=== PATIENT | female | born 1985 | race Caucasian/White ===

== ENCOUNTER 2018-10-18 09:13 | Emergency (ER) | payer SELFPAY ==
[~2018-10-18] VITALS: Ht 162.6 cm; Wt 64.0 kg
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
[2018-10-18] MEDS ORDERED: OLANZAPINE 10 MG VIAL IM ONE ×2 (09:30→10:00)
--- NOTE | 2018-10-18 09:30 | NUR ---
SITTER AT BEDSIDE
[2018-10-18 09:54] LABS: BASOPHILS # (AUTO) 0.1 /CMM (0.0-0.2); BASOPHILS % (AUTO) 0.7 % (0.0-2.0); EOSINOPHILS % (AUTO) 2.6 % (0.0-6.0); HEMATOCRIT 39 % (33-45); LYMPHOCYTES # (AUTO) 2.3 /CMM (0.8-4.8); LYMPHOCYTES % (AUTO) 30.7 % (20.0-44.0); MEAN CORPUSCULAR HGB CONC 34 g/dl (31.0-36.0); MEAN CORPUSCULAR VOLUME 95 fL (82-100); MONOCYTES # (AUTO) 0.8 /CMM (0.1-1.30); MONOCYTES % (AUTO) 10.6 % (2.0-12.0); NEUTROPHILS # (AUTO) 4.2 /CMM (1.8-8.9); NEUTROPHILS % (AUTO) 55.4 % (43.0-81.0); PLATELET COUNT (AUTO) 377 /CMM (150-450); RED BLOOD CELL COUNT(AUTO) 4.07 MIL/uL (4.0-5.2); WHITE BLOOD COUNT (AUTO) 7.5 K/uL (4.3-11.0)
[2018-10-18] MEDS ORDERED: IV NS 0.9% 1,000 ML BAG IV ONE (10:00)
[2018-10-18 10:05] LABS: CALCIUM, SERUM 9.4 mg/dL (8.5-10.1); CARBON DIOXIDE 19 mmol/L (21-32); CHLORIDE 103 mmol/L (98-107); GLUCOSE 81 mg/dL (74-106); POTASSIUM 4.2 mmol/L (3.5-5.1); SODIUM SERUM 139 mmol/L (136-145); UREA NITROGEN, BLOOD 9 mg/dL (7-18)
[2018-10-18 10:10] LABS: APPEARANCE,URINE Cloudy (CLEAR); BILIRUBIN,URINE SMALL (NEGATIVE); BLOOD, URINE Negative Ery/uL (NEGATIVE); COLOR,URINE Yellow (YELLOW); KETONES,URINE Trace (NEGATIVE); LEUKOCYTE ESTERASE ,URINE Negative (NEGATIVE); NITRITE, URINE Negative (NEGATIVE); PROTEIN,URINE 30 mg/dl (NEGATIVE); UGLUCOSE Negative (NEGATIVE); UROBILINOGEN,URINE 0.2 EU/dL (0.2)
[2018-10-18 10:11] LABS: ALANINE AMINOTRANSFERASE 19 U/L (12-78); ALBUMIN 4.1 g/dL (3.4-5.0); ALKALINE PHOSPHATASE 51 U/L (46-116); ASPARTATE AMINOTRANSFERASE 19 U/L (15-37); BILIRUBIN,DIRECT 0.2 mg/dL (0.0-0.2); BILIRUBIN,TOTAL 1.2 mg/dL (0.2-1.0); TOTAL PROTEIN, SERUM 7.4 g/dL (6.4-8.2)
[2018-10-18 10:12] LABS: ACETAMINOPHEN 0 ug/ml (10-30); ALCOHOL, BLOOD < 3 mg/dL (0-0); SALICYLATE 1.9 mg/dL (2.8-20.0)
[2018-10-18 10:17] LABS: BACTERIA,URINE Few /HPF (None Seen); RBC,URINE 0-3 /HPF (0-2); SQUAMOUS EPITHELIAL CELL,UR Moderate /HPF (None Seen)
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
[2018-10-18] MEDS ORDERED: OLANZAPINE 5 MG TABLET PO ONE (17:00)
[2018-10-18] MEDS ORDERED: OLANZAPINE 5 MG TABLET ONE (17:13)
--- NOTE | 2018-10-18 17:30 | NUR ---
PROVIDED PT WITH MEAL TRAY
--- NOTE | 2018-10-18 20:15 | NUR ---
PT PROVIDED WITH MEAL TRAY, PT THEN THREW FOOD TRAY AT STAFF.
--- NOTE | 2018-10-18 20:20 | NUR ---
IV removed. Catheter intact and site benign. Pressure and 4x4 applied to site. No bleeding noted.
--- NOTE | 2018-10-18 20:30 | NUR ---
PT AGAIN PROVIDED WITH FOOD AND DRINK AND NEW CLOTHES. PT REFUSED TO SIGN DISCHARGE PAPERWORK OR HOMELESS WAIVER. PT LEFT ER. DR HOLDER NOTIFIED.
[2018-10-18 20:43] VITALS: BP 135/74
== END 2018-10-18 20:43 | disposition home or self-care (01) ==
LOC: ER 09:17 → EDBD 09:17 → ER 20:43
DX: G93.40 Encephalopathy, unspecified (principal); F15.10 Other stimulant abuse, uncomplicated
CPT/HCPCS: 36415; 80048; 80076; 80305; 80307; 80329; 81001; 84702; 85025; 93005; 96372; 99291; G0480; J3490; J7030; 81000-TC

== ENCOUNTER 2018-10-19 00:51 | Emergency (ER) | payer SELFPAY ==
[~2018-10-19] VITALS: Ht 165.1 cm; Wt 61.2 kg
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
[2018-10-19] MEDS ORDERED: LORAZEPAM INJ 2 MG/ML VIAL IVP ONE (01:30)
[2018-10-19] MEDS ORDERED: LORAZEPAM INJ 2 MG/ML VIAL ONE (01:38)
[2018-10-19 01:49] LABS: BASOPHILS # (AUTO) 0.1 /CMM (0.0-0.2); BASOPHILS % (AUTO) 0.8 % (0.0-2.0); EOSINOPHILS % (AUTO) 3.4 % (0.0-6.0); HEMATOCRIT 39 % (33-45); HEMOGLOBIN 13.3 g/dL (11.5-14.8); LYMPHOCYTES # (AUTO) 2.1 /CMM (0.8-4.8); LYMPHOCYTES % (AUTO) 25.3 % (20.0-44.0); MEAN CORPUSCULAR HGB CONC 34 g/dl (31.0-36.0); MEAN CORPUSCULAR VOLUME 93 fL (82-100); MONOCYTES # (AUTO) 0.7 /CMM (0.1-1.30); MONOCYTES % (AUTO) 8.1 % (2.0-12.0); NEUTROPHILS # (AUTO) 5.1 /CMM (1.8-8.9); NEUTROPHILS % (AUTO) 62.4 % (43.0-81.0); PLATELET COUNT (AUTO) 361 /CMM (150-450); RED BLOOD CELL COUNT(AUTO) 4.18 MIL/uL (4.0-5.2); WHITE BLOOD COUNT (AUTO) 8.2 K/uL (4.3-11.0)
[2018-10-19 01:54] LABS: CARBON DIOXIDE 27 mmol/L (21-32); CHLORIDE 106 mmol/L (98-107); GLUCOSE 101 mg/dL (74-106); POTASSIUM 3.5 mmol/L (3.5-5.1); SODIUM SERUM 144 mmol/L (136-145); UREA NITROGEN, BLOOD 14 mg/dL (7-18)
[2018-10-19 02:11] LABS: ALANINE AMINOTRANSFERASE 30 U/L (12-78); ALBUMIN 3.7 g/dL (3.4-5.0); ALKALINE PHOSPHATASE 64 U/L (46-116); ASPARTATE AMINOTRANSFERASE 64 U/L (15-37); BILIRUBIN,DIRECT 0.2 mg/dL (0.0-0.2); BILIRUBIN,TOTAL 0.6 mg/dL (0.2-1.0); TOTAL PROTEIN, SERUM 6.8 g/dL (6.4-8.2)
[2018-10-19 02:12] LABS: ALCOHOL, BLOOD < 3 mg/dL (0-0)
[2018-10-19 03:01] LABS: BILIRUBIN,URINE Negative (NEGATIVE); BLOOD, URINE Negative Ery/uL (NEGATIVE); COLOR,URINE Yellow (YELLOW); KETONES,URINE 15 (NEGATIVE); LEUKOCYTE ESTERASE ,URINE Small (NEGATIVE); NITRITE, URINE Positive (NEGATIVE); PH,URINE 8.5 (5.0-8.0); PROTEIN,URINE 30 mg/dl (NEGATIVE); UGLUCOSE Negative (NEGATIVE); UROBILINOGEN,URINE 0.2 EU/dL (0.2)
[2018-10-19 03:05] LABS: APPEARANCE,URINE TURBID (CLEAR)
--- NOTE | 2018-10-19 03:05 | NUR ---
PT SLEEPING IN [facility]. NO SIGNS OF DISTRESS NOTED. PT VITAL SIGNS WITHIN NORMAL LIMITS. WILL CONT TO MONITOR PT.
[2018-10-19 03:19] LABS: BACTERIA,URINE Many /HPF (None Seen); RBC,URINE 0-2 /HPF (0-2); SQUAMOUS EPITHELIAL CELL,UR Few /HPF (None Seen)
--- NOTE | 2018-10-19 06:12 | NUR ---
PT SLEEPING IN [facility]. NO SIGNS OF DISTRESS NOTED, PT VITAL SIGNS STABLE. WILL CONT TO MONITOR PT.
--- NOTE | 2018-10-19 10:45 | NUR ---
AGITATED, BUT A/O X 3, WANTING TO BE DISCHARGED.
--- NOTE | 2018-10-19 11:00 | NUR ---
DR GAVIN AT BEDSIDE FOR RE-EVAL
--- NOTE | 2018-10-19 11:07 | NUR ---
AMBULATED TO RESTROOM WITH STEADY GAIT
[2018-10-19 12:32] VITALS: BP 128/71
--- NOTE | 2018-10-19 12:34 | NUR ---
Patient discharged to home in stable condition. Written and verbal after care instructions given. Patient verbalizes understanding of instruction. tap card, clothes, and food provided. Per patient she stays in a private place. Left in stable condition, no c/o pain or discomfort. Ambulatory with steady gait.
== END 2018-10-19 12:33 | disposition home or self-care (01) ==
LOC: ER 00:53
DX: F19.10 Other psychoactive substance abuse, uncomplicated (principal); R45.1 Restlessness and agitation; F12.10 Cannabis abuse, uncomplicated; F15.10 Other stimulant abuse, uncomplicated; Z59.0 Homelessness
CPT/HCPCS: 36415; 80048; 80076; 80305; 80307; 81001; 85025; 87086; 96372; 99283; J2060; 81000-TC; G0480